=== PATIENT | female | born 1965 | race Caucasian/White ===

== ENCOUNTER → 2016-09-21 16:43 | Outpatient (CLI) | payer BC ==
[2013-11-20 20:55] VITALS: BMI 33.1
[~2016-09-21 16:43] MED LIST: CLEOCIN HCL300 MG PO; CYCLOBENZAPRINE10 MG PO; GABAPENTIN100 MG; LISINOPRIL-HCTZ1 TA2 PO; LISINOPRIL10 MG; MOBIC7.5 MG PO; NEURONTIN 300300 MG PO; NORCO 5/325 TAB1 TA1 PO; PRILOSEC20 MG; VENTOLIN HFA18 GM
== END | disposition home or self-care (01) ==
LOC: D.MAMMO 10:00
DX: R92.8 Other abnormal and inconclusive findings on diagnostic imaging of breast (principal)

== ENCOUNTER → 2017-01-31 10:57 | Outpatient (CLI) | payer OTHER ==
[2013-11-20 20:55] VITALS: BMI 33.1
== END | disposition home or self-care (01) ==
LOC: D.RAD 10:00
DX: Z02.71 Encounter for disability determination (principal)

== ENCOUNTER → 2018-03-07 23:52 | Outpatient (CLI) | payer MEDICAID ==
[2013-11-20 20:55] VITALS: BMI 33.1
== END | disposition home or self-care (01) ==
LOC: D.MAMMO 13:15
DX: Z12.31 Encounter for screening mammogram for malignant neoplasm of breast (principal)

== ENCOUNTER 2019-03-12 08:00 | Outpatient (CLI) | payer MEDICAID ==
[2013-11-20 20:55] VITALS: BMI 33.1
== END 2019-03-12 23:59 | disposition home or self-care (01) ==
LOC: D.MAMMO 08:00
PROVIDERS: ATTEND Family Medicine
DX: Z12.31 Encounter for screening mammogram for malignant neoplasm of breast (principal)